=== PATIENT | male | born 1945 | race Two or more races ===

== ENCOUNTER 2017-09-04 19:27 | Emergency (ER) | payer MEDICARE, OTHER ==
[~2017-09-04] VITALS: Ht 157.5 cm; Wt 77.1 kg
[2017-09-04 19:45] VITALS: BP 165/104
[2017-09-04] MEDS ORDERED: HYDROCODONE/APAP 5/325MG 1 EACH TABLET ONE (20:42)
[2017-09-04] MEDS ORDERED: HYDROCODONE/APAP 5/325MG 1 EACH TABLET PO ONE (21:00)
== END 2017-09-04 22:00 | disposition home or self-care (01) ==
LOC: ER 19:31
DX: M54.16 Radiculopathy, lumbar region (principal); M54.32 Sciatica, left side; I10 Essential (primary) hypertension; E11.9 Type 2 diabetes mellitus without complications
CPT/HCPCS: 72131; 99284; A4606; Z7610